=== PATIENT | female | born 1945 | race Caucasian/White ===

== ENCOUNTER 2019-01-20 16:46 | Inpatient (IN) | payer MEDICARE, MEDICAID, SELFPAY | END 2019-01-22 16:00 | DRG 871 | PROVIDERS: Admitting Provider Internal Medicine; Emergency Provider Emergency Medicine; Visit Provider Internal Medicine | DX: A41.9 Sepsis, unspecified organism (principal); L89.154 Pressure ulcer of sacral region, stage 4; N39.0 Urinary tract infection, site not specified; Z28.21 Immunization not carried out because of patient refusal; N18.3 Chronic kidney disease, stage 3 (moderate); I69.920 Aphasia following unspecified cerebrovascular disease; I69.998 Other sequelae following unspecified cerebrovascular disease; J44.9 Chronic obstructive pulmonary disease, unspecified; E11.42 Type 2 diabetes mellitus with diabetic polyneuropathy; I12.9 Hypertensive chronic kidney disease with stage 1 through stage 4 chronic kidney disease, or unspecified chronic kidney disease; E78.5 Hyperlipidemia, unspecified; Z87.440 Personal history of urinary (tract) infections; F41.8 Other specified anxiety disorders; D64.9 Anemia, unspecified; M19.90 Unspecified osteoarthritis, unspecified site; Z90.49 Acquired absence of other specified parts of digestive tract; Z91.19 Patient's noncompliance with other medical treatment and regimen; G47.33 Obstructive sleep apnea (adult) (pediatric); B96.20 Unspecified Escherichia coli [E. coli] as the cause of diseases classified elsewhere; R53.81 Other malaise | CPT/HCPCS: 36415; 51701; 70450; 71045; 80048; 80053; 81001; 83036; 83605; 85025; 85027; 85610; 85730; 87040; 87077; 87086; 87088; 87186; 93970; 96361; 96365; 96366; 96372; 99285; A9270; G0378; J0744; J1650; J7030 ==